=== PATIENT | male | born 1955 | race Caucasian/White ===

== ENCOUNTER 2020-02-23 07:52 | Day surgery (SDC) | payer OTHER, SELFPAY ==
[2020-02-21 09:03] VITALS: BMI 36.9
[2020-02-23 08:01] VITALS: BP 144/82; PULSE 71; RESP 18; TEMP 36.4; O2SAT 97
--- NOTE | 2020-02-23 08:05 | ANES.PREANE2 ---
Pre-Anesthetic Assessment Pre-Anesthetic Assessment: Height/Weight: Height 1.7 m Weight 107.048 kg Temp Pulse Resp BP Pulse Ox 97.6 F 71 18 144/82 97 02/23/20 08:01 02/23/20 08:01 02/23/20 08:01 02/23/20 08:01 02/23/20 08:01 Preop Diagnosis: History of colon polyp Proposed Procedure: Operation Date: 02/23/20 09:35 Proposed Procedures p Colonoscopy 06920 Z86.010(Not Applicable) - Merlin Yost MD Was Beta Maggie taken within 24 hours: N/A Last intake: Intake Last Liquid Date 02/22/20 Last Liquid Time 20:00 Social: Social History: Alcohol and No tobacco Exam: Pre-Anes Outpt Exam: alert, oriented x 3, clear to auscultation bilaterally and regular rate & rhythm Airway: Submandibular: WNL Cervical ROM: WNL MP: 2 Dentition: False (upper plate) History/ROS: No significant history except as noted and No significant complaints Pulmonary: Pulmonary: None reported CV/HEM: CV/HEM: None reported : : None reported Hepatic: Hepatic: None reported GI: GI: None reported Metabolic: Metabolic: None reported Musc/skel: Musc/skel: None reported Neuropsych: Neuropsych: None reported Anesthetic Plan: ASA status: 2 Anesthesia: Anesthesia Evaluation and MAC Risk of > 500 ml blood loss (7ml/kg in children): No PFSH Anesthesia PFSH: Surgical History History of carpal tunnel release History of colonoscopy with polypectomy (~2013) History of decompression of both ulnar nerves Family History Denies family history of Anesthesia complication Bleeding disorder Social History Smoking and tobacco status: never smoked Second hand smoke exposure: No Alcohol intake: never Adopted: No Caregiver/support person: Yes Lives independently: Yes Household members: spouse Housing: House Marital status: service: Yes Pets and animals: No History of recent travel: Yes Leisure activites: sports Current gender identity: Male Shakila/Scientology: Congregation Data Anesthesia Cardiac Studies: No Data to Display
[2020-02-23] MEDS: sodium chloride 0.9% 1,000 ML 30 ML IV (08:13)
--- NOTE | 2020-02-23 08:35 | W.PM.OPSUD ---
Surgery/Procedure H&P Update DATE OF PROCEDURE: February 23, 2020 DATE H&P PERFORMED: 02/14/20 H&P UPDATE INFORMATION: I have reviewed H&P completed within last 30 days, I have examined patient prior to procedure and No changes to prior documentation PREOP DIAGNOSIS: History of colon polyp PRIMARY INDICATION FOR PROCEDURE: The same PLANNED PROCEDURE: Operation Date: 02/23/20 09:35 Proposed Procedures p Colonoscopy [id number] Z86.010(Not Applicable) - Merlin Yost MD
[2020-02-23 08:53] VITALS: BP 110/69; PULSE 86; RESP 16; TEMP 36.4; O2SAT 98
[2020-02-23 09:06] VITALS: BP 113/78; PULSE 76; RESP 18; O2SAT 98
== END 2020-02-23 09:16 | disposition home or self-care (01) ==
PROVIDERS: PCP Emergency Medicine Emergency Medical Services; Visit Provider Surgery
PROC: 0DJD8ZZ Inspection of Lower Intestinal Tract, Via Natural or Artificial Opening Endoscopic (ICD-10-PCS; CPT 45378; principal; 2020-02-23 09:30)
DX: K57.30 Diverticulosis of large intestine without perforation or abscess without bleeding (principal); Z86.010 Personal history of colon polyps
CPT/HCPCS: 12345; 45378; J2704; J7030

== ENCOUNTER 2021-05-09 06:38 | Emergency (ER) | payer OTHER, SELFPAY ==
--- NOTE | 2021-05-09 06:44 | XR_ITS ---
WS: [id number] Left hip, AP and frog leg views, 05/09/2021 Clinical Data: pain Comparison: Left hip, 03/22/2019. Findings: No fractures or dislocations are seen. The hip joint is intact. The soft tissues are not remarkable. The adjacent pelvis is normal. There is a small cyst of the lateral acetabular lip. XR/XR hip LT 2-3V wo/w pel* [id number] Impression: Minimal cystic change of lateral left acetabular lip. Tonnis classification: grade 1: sclerosis of femoral head and acetabulum or sli ght joint space narrowing or slight lipping at joint margins
[2021-05-09 07:35] VITALS: BP 161/95; PULSE 55; RESP 16; TEMP 36.8; O2SAT 99; BMI 32.8
[2021-05-09 08:06] VITALS: BP 165/92; PULSE 62; RESP 16; O2SAT 98
[2021-05-09] MEDS: morphine 4 mg/mL SDV 1 mL IM (08:11)
[2021-05-09] MEDS: ketorolac 60 mg/2 mL INJ IM (08:12)
--- NOTE | 2021-05-09 08:14 | ED_ITS ---
HPI - Extremity Problem General: Chief complaint: Extremity Injury, Lower Stated complaint: L hip pain Time Seen by Provider: 05/09/21 06:38 History of Present Illness: HPI Narrative: 65-year-old male presents to the emergency room complaining of left hip pain that began this morning. Her last several days he been doing a lot of strenuous activities no known injuries no falls. MD Complaint: joint pain Onset (ago): hour(s) Pain Consistency: constant Location: left Quality: sharp Radiation: none Relieving factors: rest Exacerbating factors: nothing Associated symptoms: Reports arthralgias; Deny chest pain, fever(s), myalgias, rash or short of breath Review of Systems Const: Denies: fever(s) ENMT: Denies: throat pain, ear or mastoid pain, nasal discharge or nasal congestion Card: Denies: chest pain Resp: Denies: dyspnea, productive cough or non-productive cough GI: Denies: abdominal pain, nausea, vomiting, hematemesis, coffee ground emesis, diarrhea, constipation, bloating, hematochezia or melena : Denies: flank pain, dysuria, urinary frequency or urinary urgency Skin/Breast: Denies: rash PFSH ED PFSH: Surgical History History of carpal tunnel release History of colonoscopy with polypectomy (~2013) History of decompression of both ulnar nerves Family History Denies family history of Anesthesia complication Bleeding disorder Social History Smoking and tobacco status: never smoked Second hand smoke exposure: No Alcohol intake: never Adopted: No Caregiver/support person: Yes Lives independently: Yes Household members: spouse Housing: House Marital status: service: Yes branch: [employer] Pets and animals: No History of recent travel: Yes Leisure activites: sports Current gender identity: Male Shakila/Islam: Yarsani Physical Exam Const: COMMON NORMALS: no acute distress GENERAL APPEARANCE: cooperative and comfortable ORIENTATION/CONSCIOUSNESS: Yes awake, Yes oriented to person, Yes oriented to place and Yes oriented to time HENMT: COMMON NORMALS: normocephalic, atraumatic and hearing grossly normal bilaterally HEAD & SCALP: normocephalic and atraumatic Neck/C-Spine: COMMON NORMALS: no JVD Lymph: LYMPHATIC: no lymphadenopathy noted and no lymphedema noted Resp: COMMON NORMALS: normal respiratory effort, No retractions, No use of accessory muscles and clear to auscultation bilaterally AUSCULTATION: clear to auscultation bilaterally Cardio: COMMON NORMALS: no JVD, regular rate, regular rhythm and No murmurs present (Cardio) RATE: regular rate RHYTHM: regular rhythm GI: COMMON NORMALS: Soft to palpation and No hepatosplenomegaly present AUSCULTATION: Yes normoactive bowel sounds PALPATION: Yes Soft to palpation, No Tenderness to palpation present (GI), No Guarding due to palpation present (GI) and Yes No hepatosplenomegaly present Extremity: COMMON NORMALS: normal to inspection, capillary refill normal, no clubbing, cyanosis or edema, no calf tenderness and no pedal edema Neuro: SENSORIUM/ORIENTATION: Yes oriented to person, Yes oriented to place and Yes oriented to time Skin: COMMON NORMALS: no rashes or lesions noted GENERAL SKIN EXAM: no rashes or lesions noted Course Vital Signs: Vital signs: Vital Signs Temperature 98.3 F 05/09/21 07:35 Pulse Rate 63 05/09/21 09:20 Respiratory Rate 16 05/09/21 09:20 Blood Pressure 134/91 05/09/21 09:20 Pulse Oximetry 96 05/09/21 09:20 MDM - Extremity (Nontraumatic) MDM Narrative: Medical decision making narrative: Imaging is unremarkable. Certainly Medrol Dosepak anti-inflammatories can use ice or heat as needed for comfort follow-up with primary care if not improving Discharge Plan Discharge Patient Disposition: Home Clinical Impression: Acute pain of left hip Condition: Stable Prescriptions: New diclofenac sodium 75 mg tablet,delayed release (DR/EC) 75 mg PO Q12H PRN (Reason: pain) Qty: 20 RF: 0 Medrol (Misael) 4 mg tablets,dose pack See Rx Instructions .ROUTE .COMPLEX Qty: 21 RF: 0 Discontinued ibuprofen 200 mg capsule 800 mg PO TID PRN (Reason: Pain) RF: 0 Discharge Orders: Discharge ED (Routine); Ordered 05/09/21 Ordered By: Jose Mcclellan Referrals: Vick Sauer DO [Primary Care Provider] - Discharge Diet: Usual diet Discharge Activity: Increase activity as tolerated Patient Instructions: Opioid Safety Activity Restrictions/Additional Instructions: Follow-up with your primary care doctor if persists. 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
[2021-05-09 09:20] VITALS: BP 134/91; PULSE 63; RESP 16; O2SAT 96
== END 2021-05-09 09:22 | disposition home or self-care (01) ==
PROVIDERS: Emergency Provider Family Medicine; PCP Emergency Medicine Emergency Medical Services
DX: M25.552 Pain in left hip (principal)
CPT/HCPCS: 73502; 96372; 99283; J1885; J2270; J2930

== ENCOUNTER 2022-02-21 07:07 | Emergency (ER) | payer OTHER, MEDICARE, SELFPAY ==
[2022-02-21 07:19] VITALS: BP 163/87; PULSE 68; RESP 16; TEMP 36.6; O2SAT 95; BMI 36.8
[2022-02-21 07:28] VITALS: BP 163/87; PULSE 77; O2SAT 96
--- NOTE | 2022-02-21 07:28 | ED_ITS ---
HPI - Extremity Problem General: Chief complaint: Extremity Problem,Nontraumatic Stated complaint: [facility], and blood work Time Seen by Provider: 02/21/22 07:09 History of Present Illness: 66-year-old male patient presents to the emergency department complaining of right sided sciatica pain. Patient denies any injury or trauma. Patient denies any loss of bowel or bladder. Patient denies any fever. Patient denies any use of IV drug use. Patient states he has chronic intermittent sciatica pain. Patient states that the pain starts at his right buttocks and radiates down the back of his leg. Patient states he went to see his primary care physician and they were sent him over here for evaluation of kidney function as patient states he has been taking a lot of Tylenol and ibuprofen. However patient denies any CVA tenderness or flank pain. Patient states this is a common occurrence for him patient denies any other complaints at this time Associated symptoms: Deny chest pain, fever(s) or rash Review of Systems Const: Denies: fever(s), chills, body aches, change in appetite, change in weight, fatigue, malaise or diaphoresis Eyes: Denies: change in vision, blurry vision, blind spots, photophobia, eye discomfort, eye discharge, eye redness, floaters or seeing flashes ENMT: Denies: throat pain, uvular edema, enlarged tonsils, odynophagia, hoarseness, mouth pain, swelling of lips/tongue, oral sores, bleeding gums, dental pain, dry mouth, ear or mastoid pain, ear discharge, change in hearing, tinnitus, disequilibrium, nasal discharge, nasal congestion, post nasal drip or sinus pain Card: Denies: chest pain, palpitations, irregular heart rhythm, edema, swelling of feet/ankles, lightheadedness, syncope, pre-syncope, dyspnea on exertion, orthopnea, leg pain with exertion or acrocyanosis Resp: Denies: dyspnea, productive cough, non-productive cough, wheezing, stridor, pain on inspiration, change in phlegm color, hemoptysis or chest congestion GI: Denies: abdominal pain, nausea, vomiting, hematemesis, dysphagia, diarrhea, constipation, GI cramping, change in bowel habits or rectal pain : Denies: flank pain, dysuria, urinary frequency, urinary urgency, urinary hesitancy or hematuria Musc: Denies: neck pain, back pain, extremity swelling, joint pain, joint swelling, joint redness, joint warmth or deformity Skin/Breast: Denies: rash, pruritus, erythema, sores, new lesions, changes in skin color or dry skin Neuro: Denies: headache(s), numbness in extremities, weakness in extremities, sensory changes, lack of coordination, difficulty walking, frequent falls, dizziness, vertigo, confusion, behavioral changes, Slurred speech present, difficulty communicating thoughts or seizure-like activity Psych: Denies: anxiety, depression, suicidal ideation or homicidal ideation Endo: Denies: polyuria, polydipsia, tired all the time, cold intolerance, excessive sweating, flushing, hot flashes or heat intolerance Fritz/Lymph: Denies: easy bruising, easy bleeding, petechiae, purpura, enlarged lymph nodes or tender lymph nodes All/Imm: Denies: urticaria, throat swelling, tongue swelling, facial swelling, acute wheezing or itchy eyes PFSH ED PFSH: Surgical History History of carpal tunnel release History of colonoscopy with polypectomy (~2013) History of decompression of both ulnar nerves Family History Denies family history of Anesthesia complication Bleeding disorder Social History Smoking and tobacco status: never smoked Second hand smoke exposure: No Alcohol intake: never Adopted: No Caregiver/support person: Yes Lives independently: Yes Household members: spouse Housing: House Marital status: service: Yes branch: [employer] Pets and animals: No History of recent travel: Yes Leisure activites: sports Current gender identity: Male Shakila/Islam: Latter-Day Physical Exam Const: COMMON NORMALS: no acute distress, patient oriented x3, healthy appearing, alert and well nourished GENERAL APPEARANCE: cooperative, comfortable, well kempt and well developed; not ill appearing ORIENTATION/CONSCIOUSNESS: Yes awake, Yes oriented to person, Yes oriented to place and Yes oriented to time HENMT: COMMON NORMALS: normocephalic, atraumatic, TM's normal bilaterally, Normal external nose present and moist oral mucous membranes HEAD & SCALP: normocephalic and atraumatic FACE & SINUS: normal facial exam and face symmetric NOSE: Normal external nose present TYMPANIC MEMBRANE: TM's normal bilaterally THROAT: no uvular edema Neck/C-Spine: COMMON NORMALS: full ROM, no lymphadenopathy, supple, no meningeal signs, no JVD and Thyroid normal GENERAL: Yes normal visual inspection and Yes trachea midline THYROID: Thyroid normal CERVICAL SPINE: Yes cervical ROM normal Lymph: LYMPHATIC: no lymphadenopathy noted and no lymphedema noted Chest: COMMONS NORMALS: normal inspection of the chest Resp: COMMON NORMALS: normal respiratory effort, No retractions, No use of accessory muscles and clear to auscultation bilaterally EFFORT & INSPECTION: Yes able to speak in complete sentences and Yes symmetric chest movement AUSCULTATION: clear to auscultation bilaterally Cardio: COMMON NORMALS: no JVD, regular rate and regular rhythm RATE: regular rate RHYTHM: regular rhythm : COMMON NORMALS: Yes no CVA tenderness BLADDER/KIDNEY EXAM: Yes no CVA tenderness Back/Pelvis: COMMON NORMALS: no CVA tenderness, thoracic and lumbar spine normal to inspection, no thoracic nor lumbar tenderness, thoraco-lumbar ROM normal and straight leg raise negative bilaterally THORACIC SPINE/UPPER BACK: Yes normal to inspection LUMBAR SPINE/LOWER BACK: Yes normal to inspection Extremity: COMMON NORMALS: normal to inspection, full ROM and capillary refill normal GENERAL: Yes normal exam except as noted Neuro: COMMON NORMALS: patient oriented x3, CN's II-XII intact bilaterally, moves all extremities, no focal motor deficits, no sensory deficits noted, deep tendon reflexes 2+ bilaterally and gait normal SENSORIUM/ORIENTATION: Yes alert, Yes oriented to person, Yes oriented to place and Yes oriented to time MENINGEAL SIGNS: Yes no meningeal signs CRANIAL NERVES: Yes CN normal except as noted SPEECH: speech normal GAIT: Yes Normal gait present SENSORY EXAM: Yes extremities MOTOR EXAM: 5/5 motor strength present throughout Psych: COMMON NORMALS: mental status grossly normal, Normal thought process present, cooperative, normal affect, speech normal, activity/motor behavior normal, denies hallucinations, denies homicidal ideation and denies suicidal ideation APPEARANCE: Yes grossly normal and Yes well kempt ATTITUDE: Yes calm ACTIVITY/MOTOR BEHAVIOR: Yes appropriate eye contact SPEECH: Yes normal speech THOUGHT PROCESS: Normal thought process present THOUGHT CONTENT: Yes Normal thought content present ATTENTION/CONCENTRATION: Yes attention grossly intact MEMORY/COGNITION: Yes memory grossly intact INSIGHT: Good insight present (Psych) JUDGEMENT: Good judgement present (Psych) Skin: COMMON NORMALS: no rashes or lesions noted, no wounds, turgor normal, no jaundice, no petechiae and no mottling GENERAL SKIN EXAM: no rashes or lesions noted and turgor normal Course ED course: Patient is well-appearing nontoxic and in no acute distress. 66-year-old male patient presents to the emergency department complaining of right sided sciatica pain. Patient denies any injury or trauma. Patient denies any loss of bowel or bladder. Patient denies any fever. Patient denies any use of IV drug use. Patient states he has chronic intermittent sciatica pain. Patient states that the pain starts at his right buttocks and radiates down the back of his leg. Patient states he went to see his primary care physician and they were sent him over here for evaluation of kidney function as patient states he has been taking a lot of Tylenol and ibuprofen. However patient denies any CVA tenderness or flank pain. Patient states this is a common occurrence for him patient denies any other complaints at this time I will check CBC CMP and urinalysis to evaluate kidney function. I will give patient Valium as a muscle relaxer and a small dose of Toradol. Patient had improvement with pain. Labs are unremarkable and patient is requesting to go homw. Will start on short bourse of steroids. Vital Signs: Vital signs: Vital Signs Temperature 97.8 F 02/21/22 07:19 Pulse Rate 77 02/21/22 07:28 Respiratory Rate 16 02/21/22 07:19 Blood Pressure 163/87 02/21/22 07:28 Pulse Oximetry 96 02/21/22 07:28 MDM - Extremity (Nontraumatic) Medical Decision Making Patient is well-appearing nontoxic and in no acute distress. 66-year-old male tracey rios presents to the emergency department complaining of right sided sciatica pain. Patient denies any injury or trauma. Patient denies any loss of bowel or bladder. Patient denies any fever. Patient denies any use of IV drug use. Patient states he has chronic intermittent sciatica pain. Patient states that the pain starts at his right buttocks and radiates down the back of his leg. Patient states he went to see his primary care physician and they were sent him over here for evaluation of kidney function as patient states he has been taking a lot of Tylenol and ibuprofen. However patient denies any CVA tenderness or flank pain. Patient states this is a common occurrence for him patient denies any other complaints at this time I will check CBC CMP and urinalysis to evaluate kidney function. I will give patient Valium as a muscle relaxer and a small dose of Toradol. Patient had improvement with pain. Labs are unremarkable and patient is requesting to go homw. Will start on short bourse of steroids. Lab Data : 02/21/22 07:40 02/21/22 07:40 Laboratory Results WBC 6.0 10^3/uL (4.0-10.0) 02/21/22 07:40 RBC 4.98 10^6/uL (4.1-5.3) 02/21/22 07:40 Hgb 15.7 g/dL (11.7-16.6) 02/21/22 07:40 Hct 46.7 % (42.0-52.0) 02/21/22 07:40 MCV 93.8 fl (80-94) 02/21/22 07:40 MCH 31.5 pg (28.0-34.0) 02/21/22 07:40 MCHC 33.6 g/dL (30.0-36.0) 02/21/22 07:40 RDW 12.6 % (12.1-15.1) 02/21/22 07:40 Plt Count 245 10^3/cmm (130-400) 02/21/22 07:40 MPV 11.0 fL (7.4-10.4) H 02/21/22 07:40 Neut % (Auto) 59.3 % 02/21/22 07:40 Lymph % (Auto) 23.3 % 02/21/22 07:40 Phelps % (Auto) 10.2 % 02/21/22 07:40 Eos % (Auto) 5.0 % 02/21/22 07:40 Baso % (Auto) 1.7 % 02/21/22 07:40 Neut # (Auto) 3.53 10^3/uL (1.8-7.7) 02/21/22 07:40 Lymph # (Auto) 1.4 10^3/uL (0.8-4.8) 02/21/22 07:40 Phelps # (Auto) 0.6 10^3/uL (0.2-0.9) 02/21/22 07:40 Eos # (Auto) 0.3 10^3/uL (0.0-0.8) 02/21/22 07:40 Baso # (Auto) 0.1 10^3/uL (0.0-0.1) 02/21/22 07:40 Nucleated RBC % (auto) 0 % 02/21/22 07:40 Nucleated RBCs # 0.0 /100WBC 02/21/22 07:40 Sodium 136 mmol/L (136-145) 02/21/22 07:40 Potassium 4.5 mmol/L (3.5-5.1) 02/21/22 07:40 Chloride 102 mmol/L (98-107) 02/21/22 07:40 Carbon Dioxide 25 mmol/L (22-29) 02/21/22 07:40 Anion Gap 13.5 (5-19) 02/21/22 07:40 BUN 21 mg/dL (8-23) 02/21/22 07:40 Creatinine 0.6 mg/dL (0.7-1.2) L 02/21/22 07:40 GFR Calculation 135.2 mL/min (90-130) H 02/21/22 07:40 Glucose 100 mg/dL (65-115) 02/21/22 07:40 Calculated Osmolality 285 mOsm/kg (285-295) 02/21/22 07:40 Calcium 8.2 mg/dL (8.5-10.5) L 02/21/22 07:40 Total Bilirubin 0.3 mg/dL (0.15-1.2) 02/21/22 07:40 AST 19 U/L (0-40) 02/21/22 07:40 ALT 13 U/L (0-41) 02/21/22 07:40 Alkaline Phosphatase 67 IU/L (40-130) 02/21/22 07:40 Total Protein 6.7 g/dL (6.6-8.7) 02/21/22 07:40 Albumin 4.3 g/dL (3.5-5.2) 02/21/22 07:40 Globulin 2.4 g/dL (1.3-4.6) 02/21/22 07:40 Urine Color Yellow (Yellow) 02/21/22 07:54 Urine Appearance Clear (CLEAR) 02/21/22 07:54 Urine pH 6 (5-7) 02/21/22 07:54 Ur Specific [place] 1.020 (1.005-1.030) 02/21/22 07:54 Urine Protein Neg (Negative) 02/21/22 07:54 Urine Glucose (UA) Norm (Normal) 02/21/22 07:54 Urine Ketones Negative (Negative) 02/21/22 07:54 Urine Blood Neg (Negative) 02/21/22 07:54 Urine Nitrate Negative (Negative) 02/21/22 07:54 Urine Bilirubin Neg (Negative) 02/21/22 07:54 Urine Urobilinogen Norm mg/dL (Negative) 02/21/22 07:54 Ur Leukocyte Esterase Negative (Negative) 02/21/22 07:54 Discharge Plan Discharge Patient Disposition: Home Clinical Impression: Sciatic leg pain Condition: Stable Prescriptions: New prednisone 20 mg tablet 20 mg PO BID 5 Days Qty: 10 0RF Discharge Orders: Discharge ED (Routine); Ordered 02/21/22 Ordered By: Bibiana Barrera Referrals: Vick Sauer DO [Primary Care Provider] - Discharge Diet: Usual diet Discharge Activity: Increase activity as tolerated Activity Restrictions/Additional Instructions: Please perform stretches as demonstrated Please return with worsening pain, fever, loss of bowel or bladder or any other concerns Take medications as directed Follow up with PCP Coding Level of Care Code ED 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
[2022-02-21] MEDS: diazePAM 2 mg Tablet PO (07:34)
[2022-02-21] MEDS: ketorolac 30 mg/mL INJ IM (07:34)
[2022-02-21 08:00] LABS: Basophils # 0.1 10^3/uL (0.0-0.1); Basophils % 1.7 %; Eosinophils # 0.3 10^3/uL (0.0-0.8); Hematocrit 46.7 % (42.0-52.0); Hemoglobin 15.7 g/dL (11.7-16.6); Lymphocytes # 1.4 10^3/uL (0.8-4.8); Lymphocytes % 23.3 %; Mean Corpuscular HGB Conc 33.6 g/dL (30.0-36.0); Mean Corpuscular Hemoglobin 31.5 pg (28.0-34.0); Mean Corpuscular Volume 93.8 fl (80-94); Monocytes # 0.6 10^3/uL (0.2-0.9); Monocytes % 10.2 %; Neutrophils # 3.53 10^3/uL (1.8-7.7); Neutrophils % 59.3 %; Nucleated Red Blood Cells % 0 %; Platelet Count 245 10^3/cmm (130-400); Red Blood Count 4.98 10^6/uL (4.1-5.3); Red Cell Distribution Width 12.6 % (12.1-15.1)
[2022-02-21 08:10] LABS: Alanine Aminotransferase 13 U/L (0-41); Albumin Level 4.3 g/dL (3.5-5.2); Alkaline Phosphatase 67 IU/L (40-130); Blood Urea Nitrogen 21 mg/dL (8-23); Calcium 8.2 mg/dL (8.5-10.5); Carbon Dioxide 25 mmol/L (22-29); Chloride 102 mmol/L (98-107); Globulin 2.4 g/dL (1.3-4.6); Glomerular Filtration Rate 135.2 mL/min (90-130); Glucose 100 mg/dL (65-115); Osmolality Calculated 285 mOsm/kg (285-295); Sodium 136 mmol/L (136-145); Total Bilirubin 0.3 mg/dL (0.15-1.2); Total Protein 6.7 g/dL (6.6-8.7)
[2022-02-21 08:17] LABS: Anion Gap 13.5 (5-19); Aspartate Amino Transferase 19 U/L (0-40); Creatinine Clr Calc Pharmacy 107.1583; Potassium 4.5 mmol/L (3.5-5.1)
[2022-02-21 08:57] LABS: Add Urine Microscopic? NO; Charge for UA Resulting for Rev
[2022-02-21 09:09] LABS: Bilirubin Urine Neg (Negative); Blood Urine Neg (Negative); Glucose Urine UA Norm (Normal); Ketones Urine Negative (Negative); Leukocyte Esterase Urine Negative (Negative); Nitrate Urine Negative (Negative); Protein Urine Neg (Negative); Urine Appearance Clear (CLEAR); Urine Color Yellow (Yellow); Urobilinogen Urine Norm (Negative); pH Urine 6 (5-7)
== END 2022-02-21 09:38 | disposition home or self-care (01) ==
PROVIDERS: Emergency Provider Registered Nurse; PCP Emergency Medicine Emergency Medical Services
DX: M54.31 Sciatica, right side (principal)
CPT/HCPCS: 80053; 81003; 85025; 96372; 99283; J1885

== ENCOUNTER 2022-07-04 13:58 | Outpatient (CLI) | payer OTHER, SELFPAY ==
--- NOTE | 2022-07-04 14:10 | MR_ITS ---
WS: [id number] MRI LUMBAR SPINE NONCONTRAST HISTORY: CONTINUED PROBLEM W/R LOWER EXTREMITY DISCOMFORT TINGLING, foot drop on the RIGHT. COMPARISON: None available. TECHNIQUE: Sagittal and axial multisequence imaging is submitted. Multilevel moderate degenerative disc desiccation and narrowing throughout the cervical and thoracic spine. Small disc bulges and osteophytes. No high-grade stenosis or cord compression. L5 anterolisthesis by 9.4 mm with unroofing of the disc. Bilateral pars defects are present. L5-S1 di sc space severely narrowed with endplate osteophytes. The remaining disc spaces in the lumbar spine are mildly narrowed. No acute fractures. Conus terminates normally at L2. T12-L1: Small LEFT foraminal disc protrusion contacts the exiting LEFT T12 nerve root. L1-L2: Mild facet arthritis with no stenosis. L2-L3: Moderate diffuse annular disc bulge with ligamentum flavum and facet arthritis. Small vertebra l body osteophytes. There is mild central with bilateral subarticular recess and LEFT foraminal narro wing. L3-L4: Diffuse asymmetric disc bulging slightly to the LEFT. Moderate ligamentum flavum and facet art hritis. Small central disc protrusion with additional disc osteophyte complex in the LEFT foramen. Mi ld central, bilateral subarticular recess and foraminal stenosis. L4-L5: Diffuse annular disc bulge with marked ligamentum flavum and facet arthritis. Widening of the facet joints with fluid in the facet joints. Fluid in the LEFT facet joint measures 4.4 mm. Small fis sures within the disc extending into the RIGHT foramen. Mild central and bilateral subarticular reces s stenosis. Moderate to severe RIGHT and moderate LEFT foraminal stenosis. L5-S1: Marked unroofing of the disc due to anterolisthesis of L5. Disc contacts but does not displace the S1 nerve roots. Complete effacement of fat within the neural foramina. Severe bilateral foramina l stenosis with severe facet joint arthritis. Paravertebral soft tissues are negative. MR/MR lumbar spine wo con* [id number] IMPRESSION: 1. Grade 1 spondylolisthesis of L5 with spondylolysis. 2. Severe bilateral foraminal stenosis at L5-S1 with severe facet joint arthri tis. 3. Moderate to severe RIGHT and moderate LEFT foraminal stenosis at L4-5 with mild central and subarticular recess stenosis. 4. Severe facet joint arthritis at L4-5 with widening of the facet joints and fluid along the facet joints. 5. Mild central, bilateral subarticular recess and LEFT foraminal stenosis at L2-3. 6. Mild central, bilateral subarticular recess and foraminal stenosis at L3-4. 7. LEFT foraminal disc protrusion at T12-L1 with mild contact on the exiting L EFT T12 nerve root.
== END 2022-07-04 13:59 | disposition home or self-care (01) ==
LOC: RAD 13:59
PROVIDERS: PCP Emergency Medicine Emergency Medical Services; Visit Provider Emergency Medicine Emergency Medical Services
DX: M51.25 Other intervertebral disc displacement, thoracolumbar region (principal); M51.36 Other intervertebral disc degeneration, lumbar region; M47.817 Spondylosis without myelopathy or radiculopathy, lumbosacral region; M48.07 Spinal stenosis, lumbosacral region
CPT/HCPCS: 72148

== ENCOUNTER → 2022-07-25 08:10 | Outpatient (BNVA) | payer OTHER, SELFPAY | PROVIDERS: PCP Emergency Medicine Emergency Medical Services; Referring Provider Emergency Medicine Emergency Medical Services; Visit Provider Physician Assistant | DX: M43.17 Spondylolisthesis, lumbosacral region (principal); M51.37 Other intervertebral disc degeneration, lumbosacral region; M81.0 Age-related osteoporosis without current pathological fracture; M47.816 Spondylosis without myelopathy or radiculopathy, lumbar region | CPT/HCPCS: 72110; 99203; 99204 ==

== ENCOUNTER 2022-08-16 07:38 | Day surgery (SDC) | payer OTHER, SELFPAY ==
[2022-08-09 09:40] VITALS: BMI 37.5
--- NOTE | 2022-08-09 09:56 | P.ANESASSM_ITS ---
Pre-Anesthetic Assessment Height/Weight: Height 1.7 m Weight 108.862 kg Preop Diagnosis: History of colon polyp Operation Date: 08/16/22 09:20 Proposed Procedures p Lumbar Spine DecompressionL4/5 L5/S1 66914/48622 M43.17/M21.371/M51.37(Right) - Marlo Valadez DO Familial anesthetic complications: None Social No alcohol and No tobacco Exam alert, oriented x 3, clear to auscultation bilaterally and regular rate & rhythm Airway Mallampati: Class II Dentition: false Pulmonary None reported CV/HEM None reported None reported Hepatic None reported GI None reported Metabolic Morbid Obesity Neuropsych Neuropathy Medications/Allergies Home Medications Medication Instructions Recorded Confirmed Last Taken Type No Known Home Medications 07/25/22 07/25/22 Unknown History Allergies Allergy/AdvReac Type Severity Reaction Status Date / Time Penicillins AdvReac ADR-Cramping Verified 08/09/22 09:38 of the Muscles [facility] Anesthesia Surgical History History of carpal tunnel release History of colonoscopy with polypectomy (~2013) History of decompression of both ulnar nerves Family History Denies family history of Anesthesia complication Bleeding disorder Social History Smoking and tobacco status: never smoked Second hand smoke exposure: No Alcohol intake: never Adopted: No Caregiver/support person: Yes Lives independently: Yes Household members: spouse Housing: House Marital status: service: Yes branch: [employer] Pets and animals: No History of recent travel: Yes Leisure activites: sports Current gender identity: Male 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
[2022-08-16] VITALS (9 sets, daily range): BP systolic 124–145; BP diastolic 82–98; PULSE 57–68; RESP 14–21; TEMP 36.1; O2SAT 93–98
--- NOTE | 2022-08-16 | SCC_ITS ---
Procedure: 1. L4/5 laminectomy with partial facetectomy 2. L5/S1 laminectomy with partial facetectomy 17 seconds of fluoroscopic guidance, for a cumulative dose of 18.6 mGy, was provided to Dr. Valadez by the radiology department. C-arm images of the lumbar spine were saved for the patient's permanent record. [facility]
--- NOTE | 2022-08-16 | XR_ITS ---
WS: [id number] C-ARM RADIOGRAPHS LUMBAR SPINE; 3 IMAGES HISTORY: L4-5, L5-S1 decompression COMPARISON: 07/25/2022 Intraoperative imaging during spine decompression. Indicators object over the lower lumbar spine at L 4-5 and L5-S1. XR/XR lumbar spine 1V [id number] IMPRESSION: Intraoperative imaging during spinal decompression surgery.
[2022-08-16] MEDS: sodium chloride 0.9% 1,000 ML 30 ML IV (08:14)
--- NOTE | 2022-08-16 09:10 | W.PM.OPSUD ---
Surgery/Procedure H&P Update DATE OF PROCEDURE: August 16, 2022 DATE H&P PERFORMED: 02/14/20 H&P UPDATE INFORMATION: I have reviewed H&P completed within last 30 days, I have examined patient prior to procedure and No changes to prior documentation PREOP DIAGNOSIS: Right foot drop, lumbar radiculopathy PLANNED PROCEDURE: Operation Date: 08/16/22 09:20 Proposed Procedures p Lumbar Spine DecompressionL4/5 L5/S1 92547/07333 M43.17/M21.371/M51.37(Right) - Marlo Valadez DO
[2022-08-16] MEDS: clindamycin 900 MG/50 ML PREMIX 100 MG IV (09:41)
--- NOTE | 2022-08-16 11:21 | PM.OP ---
Operative Report Date of procedure: August 16, 2022 Pre-op diagnosis: Preop Diagnosis Right foot drop, lumbar radiculopathy Post-op diagnosis: same Procedure done: 1. L4/5 laminectomy with partial facetectomy 2. L5/S1 laminectomy with partial facetectomy Surgeon: Marlo Valadez Estimated blood loss (mL): 30 Procedure: 1. L4/5 laminectomy with partial facetectomy 2. L5/S1 laminectomy with partial facetectomy Patient is brought to the operative suite. After undergoing anesthesia they are placed in the prone position. All areas of impingement are well padded. Patient is then prepped and draped in the normal sterile fashion. A skin incision is made over the L5/S1 level. This is confirmed under c-arm guidance. A series of dilators are passed and the tubular retractor is docked on the L5 lamina. A bovie is used to clear the soft tissue off the lamina and the L 5/S1 facet joint. A high speed fabrizio is then used to perform the laminectomy and take down the medial aspect of the L 5/S1 facet joint. A kerrison rongeure was then used to take down the remaining lamina and smooth the edge of the laminectomy up to the point where the ligamentum flavum attaches. Attention was then brought to the medial aspect of the facet joint. The remaining medial aspect of the superior and inferior aspect of the facet joint were taken down with the kerrison from the pedicle of L5 to S1. The facet joint had significant hypertrophy. Attention was then brought to the Ligamentum Flavum. The ligament was taken down from the lamina of L5 to S1 and out medially to the remaining facet joint. The ligament was thick. The dura was then exposed. The dura was in good repair. The L5 nerve was then traced with a curette out the L5/S1 foramen and found to be adequately decompressed. The S1 nerve was traced with a curette around the S1 pedicle. The lateral recess was opened with a kerrison helping to further decompress the S1 nerve. A skin incision is made over the L4/5 level. This is confirmed under c-arm guidance. A series of dilators are passed and the tubular retractor is docked on the L4 lamina. A bovie is used to clear the soft tissue off the lamina and the L 4/5 facet joint. A high speed fabrizio is then used to perform the laminectomy and take down the medial aspect of the L 4/5 facet joint. A kerrison rongeure was then used to take down the remaining lamina and smooth the edge of the laminectomy up to the point where the ligamentum flavum attaches. Attention was then brought to the medial aspect of the facet joint. The remaining medial aspect of the superior and inferior aspect of the facet joint were taken down with the kerrison from the pedicle of L4 to L 5. The facet joint had significant hypertrophy. Attention was then brought to the Ligamentum Flavum. The ligament was taken down from the lamina of L4 to L5 and out medially to the remaining facet joint. The ligament was thick. The dura was then exposed. The dura was in good repair. The L4 nerve was then traced with a curette out the L4/5 foramen and found to be adequately decompressed. The L5 nerve was traced with a curette around the L5 pedicle. The lateral recess was opened with a kerrison helping to further decompress the L5 nerve. Wound is then irrigated copiously with saline and surgiflo is used to stop any bleeding. The tubular retractor is removed and the wound is closed with vicryl and monocryl suture. Glue is then used to protect the wound. A sterile dressing is then placed. Patient was then placed in the supine position and transferred to the PACU in stable condition.
[2022-08-16] MEDS: fentaNYL 50 mcg/mL INJ 2mL IVP (11:34)
[2022-08-16] MEDS: HYDROcodone-acetaminophen 5-325 mg Tablet 2 TAB PO (12:30)
--- NOTE | 2022-08-16 15:01 | P.ANESUD_ITS ---
Pre-Anesthetic Update Pre-Anesthetic Assessment: Date of Surgery/Procedure: 08/16/22 Preop Kimberly gnosis: Right foot drop, lumbar radiculopathy Proposed Procedure: Operation Date: 08/16/22 09:20 Proposed Procedures p Lumbar Spine DecompressionL4/5 L5/S1 44034/23677 M43.17/M21.371/M51.37(Right) - Marlo H Allyson, DO Any changes to Pre-Anesthetic Assessment?: No Last Intake: Intake Last Liquid Date 08/15/22 Last Liquid Time 21:00 Last Solid Date 08/15/22 Last Solid Time 21:00 Vitals: Temperature 97.0 F L 08/16/22 11:14 Temperature Source Temporal Artery S can 08/16/22 11:14 Pulse Rate 57 L 08/16/22 12:22 Respiratory Rate 18 08/16/22 12:22 Respiratory Effort 08/16/22 11:34 Respiratory Depth Normal 08/16/22 11:34 Respiratory Patter n 08/16/22 11:34 Blood Pressure 127/84 08/16/22 12:22 Blood Pressure Ebony n 98 08/16/22 12:22 Pulse Oximetry 95 08/16/22 12:22 Oxygen Delivery Me thod 08/16/22 12:22 Oxygen Flow Rate 10 08/16/22 11:20 Exam: Pre-Anes Outpt Exam: alert, oriented x 3, clear to auscultation bilaterally and regular rate & rhythm Cardiac Studies: No Data to Display
--- NOTE | 2022-08-16 15:02 | ANE.PACU2 ---
Inpatient post-anesthesia follow up: Airway intact: Yes Vital signs: Temperature 97.0 F Pulse Rate 57 Respiratory Rate 18 Blood Pressure 127/84 Pulse Oximetry 95 Oxygen Delivery Me thod Room Air Oxygen Flow Rate 10 Fraction of Inspir ed Oxygen Hydration adequate: Yes Nausea and vomiting: No Pain level: 3 Mental status: Baseline
== END 2022-08-16 12:49 | disposition home or self-care (01) ==
PROVIDERS: PCP Emergency Medicine Emergency Medical Services; Visit Provider Orthopaedic Surgery
PROC: (CPT 63005; principal; 2022-08-16 09:10)
DX: M54.16 Radiculopathy, lumbar region (principal); M21.371 Foot drop, right foot; E66.01 Morbid (severe) obesity due to excess calories; Z68.37 Body mass index [BMI] 37.0-37.9, adult
CPT/HCPCS: 63047; 63048; 72020; 76000; J0131; J0330; J1100; J2370; J2405; J2704; J2710; J3010; J3490; J7030

== ENCOUNTER 2022-08-18 12:50 | Emergency (ER) | payer OTHER, SELFPAY ==
[2022-08-18 13:12] VITALS: BP 173/98; PULSE 76; RESP 16; TEMP 37; O2SAT 99
--- NOTE | 2022-08-18 13:20 | W.ED.NEUROSD ---
HPI - Neuro Symptoms/Deficit General: Chief Complaint: Neuro Symptoms/Deficit Stated Complaint: Post op pain and numb feet Time Seen by Provider: 08/18/22 13:19 Source: patient Mode of arrival: ambulatory History of Present Illness: 67-year-old male presents emergency room complaining of pain in his feet. Patient is complaining severe pain bilaterally in his legs. No trauma he recently had low back surgery was having similar pain prior to surgery but is more intense now. Denies any fever sweats chills no loss of bowel continence no urinary retention Onset (ago): hour(s) Severity: mild Quality: weak, numb and tingling Relieving factors: none Exacerbating factors: none Associated symptoms: Deny chest pain, cough, diaphoresis, fevers/chills, headache(s), anorexia, malaise, nausea, seizures, short of breath, syncope, tingling, vertigo, vomiting or weakness Treatments Prior to Arrival: none Review of Systems Const: Denies: fever(s), chills, fatigue, malaise or diaphoresis ENMT: Denies: throat pain, ear or mastoid pain, nasal discharge or nasal congestion Card: Denies: chest pain or syncope Resp: Denies: dyspnea, productive cough or non-productive cough GI: Denies: abdominal pain, nausea or vomiting : Denies: flank pain, dysuria, urinary frequency or urinary urgency Musc: Denies: neck pain or back pain Skin/Breast: Denies: rash or pruritus Neuro: Denies: headache(s) or vertigo PFSH ED PFSH: Surgical History History of carpal tunnel release History of colonoscopy with polypectomy (~2013) History of decompression of both ulnar nerves Family History Denies family history of Anesthesia complication Bleeding disorder Social History Smoking and tobacco status: never smoked Second hand smoke exposure: No Alcohol intake: never Adopted: No Caregiver/support person: Yes Lives independently: Yes Household members: spouse Housing: House Marital status: service: Yes branch: [employer] Pets and animals: No History of recent travel: Yes Leisure activites: sports Current gender identity: Male Shakila/Orthodoxy: Mormon Physical Exam Const: GENERAL APPEARANCE: cooperative and comfortable ORIENTATION/CONSCIOUSNESS: Yes awake, Yes oriented to person, Yes oriented to place and Yes oriented to time HENMT: COMMON NORMALS: normocephalic, atraumatic, hearing grossly normal bilaterally, external ears normal, EAC's normal, TM's normal bilaterally, Normal nasal mucous membranes and turbinates present, moist oral mucous membranes and oropharynx normal HEAD & SCALP: normocephalic and atraumatic NOSE: Normal nasal mucous membranes and turbinates present EXTERNAL EAR: Yes external ears normal EXTERNAL AUDITORY CANAL: EAC's normal TYMPANIC MEMBRANE: TM's normal bilaterally Resp: COMMON NORMALS: normal respiratory effort, No retractions, No use of accessory muscles and clear to auscultation bilaterally AUSCULTATION: clear to auscultation bilaterally Cardio: COMMON NORMALS: regular rate, regular rhythm and No murmurs present (Cardio) RATE: regular rate RHYTHM: regular rhythm GI: COMMON NORMALS: Soft to palpation and No hepatosplenomegaly present AUSCULTATION: Yes normoactive bowel sounds PALPATION: Yes Soft to palpation, No Tenderness to palpation present (GI), No Guarding due to palpation present (GI) and Yes No hepatosplenomegaly present : COMMON NORMALS: Yes no CVA tenderness BLADDER/KIDNEY EXAM: Yes no CVA tenderness Back/Pelvis: COMMON NORMALS: no CVA tenderness Extremity: COMMON NORMALS: normal to inspection, capillary refill normal, no clubbing, cyanosis or edema, no calf tenderness and no pedal edema Neuro: SENSORIUM/ORIENTATION: Yes oriented to person, Yes oriented to place and Yes oriented to time OTHER: Sensation lower extremities normal dorsum plantar flexion 5/5 straight leg raising is moderately positive Skin: COMMON NORMALS: no rashes or lesions noted GENERAL SKIN EXAM: no rashes or lesions noted Course Vital Signs: Vital signs: Vital Signs Temperature 98.6 F 08/18/22 13:12 Pulse Rate 76 08/18/22 13:12 Respiratory Rate 18 08/18/22 14:32 Blood Pressure 173/98 08/18/22 13:12 Pulse Oximetry 99 08/18/22 13:12 Oxygen Delivery Me thod 08/18/22 13:12 MDM - Neuro Symptoms/Deficit Medical Decision Making Was lumbar laminectomy syndrome. Patient steroids tizanidine only Lyrica follow-up with orthopedic surgery can use diclofenac or hydrocodone as needed recheck if not improving Medical Records I reviewed the patient's medical records. Lab Data I reviewed the patient's lab results. 08/18/22 13:53 08/18/22 13:53 Radiology Impressions Lumbar Spine CT 08/18/22 13:21 IMPRESSION: 1. Grade 1 anterior spondylolytic spondylolisthesis of L5 on S1. 2. Severe L5-S1 degenerative disc disease and spondylosis with Modic type III sclerotic endplate degenerative changes. 3. Possible right L4-L5 laminectomy. 4. Mild L4-L5 posterior disc bulge with right lateral recess stenosis. 5. Mild multilevel lumbar spondylosis. Laboratory Results WBC 13.7 10^3/uL (4.0-10.0) H 08/18/22 13:53 RBC 4.63 10^6/uL (4.1-5.3) 08/18/22 13:53 Hgb 14.6 g/dL (11.7-16.6) 08/18/22 13:53 Hct 44.6 % (42.0-52.0) 08/18/22 13:53 MCV 96.3 fl (80-94) H 08/18/22 13:53 MCH 31.5 pg (28.0-34.0) 08/18/22 13:53 MCHC 32.7 g/dL (30.0-36.0) 08/18/22 13:53 RDW 12.8 % (12.1-15.1) 08/18/22 13:53 Plt Count 242 10^3/cmm (130-400) 08/18/22 13:53 MPV 10.3 fL (7.4-10.4) 08/18/22 13:53 Neut % (Auto) 78.9 % 08/18/22 13:53 Lymph % (Auto) 8.4 % 08/18/22 13:53 Daniels % (Auto) 10.9 % 08/18/22 13:53 Eos % (Auto) 0.4 % 08/18/22 13:53 Baso % (Auto) 0.5 % 08/18/22 13:53 Neut # (Auto) 10.81 10^3/uL (1.8-7.7) H 08/18/22 13:53 Lymph # (Auto) 1.2 10^3/uL (0.8-4.8) 08/18/22 13:53 Daniels # (Auto) 1.5 10^3/uL (0.2-0.9) H 08/18/22 13:53 Eos # (Auto) 0.1 10^3/uL (0.0-0.8) 08/18/22 13:53 Baso # (Auto) 0.1 10^3/uL (0.0-0.1) 08/18/22 13:53 Nucleated RBC % (auto) 0 % 08/18/22 13:53 Nucleated RBCs # 0.0 /100WBC 08/18/22 13:53 Sodium 125 mmol/L (136-145) L 08/18/22 13:53 Potassium 3.3 mmol/L (3.5-5.1) L 08/18/22 13:53 Chloride 91 mmol/L (98-107) L 08/18/22 13:53 Carbon Dioxide 27 mmol/L (22-29) 08/18/22 13:53 Anion Gap 10.3 (5-19) 08/18/22 13:53 BUN 15 mg/dL (8-23) 08/18/22 13:53 Creatinine 0.6 mg/dL (0.7-1.2) L 08/18/22 13:53 GFR Calculation 134.8 mL/min (90-130) H 08/18/22 13:53 Glucose 108 mg/dL (65-115) 08/18/22 13:53 Calculated Osmolality 261 mOsm/kg (285-295) L 08/18/22 13:53 Calcium 8.6 mg/dL (8.5-10.5) 08/18/22 13:53 Total Bilirubin 0.5 mg/dL (0.15-1.2) 08/18/22 13:53 AST 20 U/L (0-40) 08/18/22 13:53 ALT 16 U/L (0-41) 08/18/22 13:53 Alkaline Phosphatase 70 U/L (40-130) 08/18/22 13:53 Total Protein 6.9 g/dL (6.6-8.7) 08/18/22 13:53 Albumin 3.6 g/dL (3.5-5.2) 08/18/22 13:53 Globulin 3.3 g/dL (1.3-4.6) 08/18/22 13:53 Urine Color Straw (Yellow) 08/18/22 15:25 Urine Appearance Clear (CLEAR) 08/18/22 15:25 Urine pH 5 (5-7) 08/18/22 15:25 Ur Specific [place] 1.020 (1.005-1.030) 08/18/22 15:25 Urine Protein Neg (Negative) 08/18/22 15:25 Urine Glucose (UA) Norm (Normal) 08/18/22 15:25 Urine Ketones Negative (Negative) 08/18/22 15:25 Urine Blood Neg (Negative) 08/18/22 15:25 Urine Nitrate Negative (Negative) 08/18/22 15:25 Urine Bilirubin Neg (Negative) 08/18/22 15:25 Urine Urobilinogen Norm mg/dL (Negative) 08/18/22 15:25 Ur Leukocyte Esterase Negative (Negative) 08/18/22 15:25 Discharge Plan Discharge Patient Disposition: Home Clinical Impression: Spondylolisthesis at L5-S1 level, Lumbar post-laminectomy syndrome Condition: Stable Prescriptions: New prednisone 20 mg tablet 20 mg PO TID Qty: 15 0RF Rx Instructions: 1 p.o. 3 times daily x3 days, 1 p.o. twice daily x2 days, 1 p.o. daily x2 days diclofenac sodium 75 mg tablet,delayed release (DR/EC) 75 mg PO Q12H PRN (Reason: pain) Qty: 20 0RF tizanidine 4 mg tablet 4 mg PO Q6H PRN (Reason: muscle spasticity) Qty: 20 0RF Rx Instructions: do not exceed 3 doses per 24 hrs Lyrica 75 mg capsule 75 mg PO BID Qty: 60 0RF No Action cyclobenzaprine 5 mg tablet 5 mg PO TID PRN (Reason: muscle spasm) Qty: 90 0RF Discharge Orders: Discharge ED (Routine); Ordered 08/18/22 Ordered By: Jose Mcclellan Referrals: Vick Sauer DO [Primary Care Provider] - Discharge Diet: Usual diet Discharge Activity: Limit activity as instructed Patient Instructions: Opioid Safety, Pain Management Activity Restrictions/Additional Instructions: Follow-up with Dr. Allyson early next week. Use medications as prescribed above. Coding Level of Care Code ED Entry Level Account Executive for Sylvia Cronin
--- NOTE | 2022-08-18 13:21 | CTR_ITS ---
PROCEDURE INFORMATION: Exam: CT Lumbar Spine With Contrast Exam date and time: 08/18/2022 2:40 PM Age: 67 years old Clinical indication: Low back pain; Prior surgery; Surgery date: 3-7 days post-operative; Additional info: Post surgical pain and weakness TECHNIQUE: Imaging protocol: Computed tomography of the lumbar spine with contrast. Radiation optimization: All CT scans at this facility use at least one of these dose optimization techniques: automated exposure control; mA and/or kV adjustment per patient size (includes targeted exams where dose is matched to clinical indication); or iterative reconstruction. Contrast material: OMNIPAQUE 350; Contrast volume: 100 ml; Contrast route: INTRAVENOUS (IV); COMPARISON: MR lumbar spine wo con* [id number] 07/04/2022 2:39 PM RADIATION DOSE METRICS: Total DLP (mGy-cm): 1057.77 FINDINGS: Bones/joints: Grade 1 anterior spondylolytic spondylolisthesis of L5 on S1. Severe L5-S1 degenerative disc disease and spondylosis with Modic type III sclerotic endplate degenerative changes. Possible right L4-L5 laminectomy. Mild L4-L5 posterior disc bulge with right lateral recess stenosis. Mild multilevel lumbar spondylosis. Probable 1.1 cm benign intraosseous bone hemangioma in the right portion of the L2 vertebral body. Soft tissues: Unremarkable. CT/CT lumbar spine w con [id number] IMPRESSION: 1. Grade 1 anterior spondylolytic spondylolisthesis of L5 on S1. 2. Severe L5-S1 degenerative disc disease and spondylosis with Modic type III sclerotic endplate degenerative changes. 3. Possible right L4-L5 laminectomy. 4. Mild L4-L5 posterior disc bulge with right lateral recess stenosis. 5. Mild multilevel lumbar spondylosis.
[2022-08-18 13:57] LABS: Basophils # 0.1 10^3/uL (0.0-0.1); Basophils % 0.5 %; Eosinophils # 0.1 10^3/uL (0.0-0.8); Eosinophils % 0.4 %; Hematocrit 44.6 % (42.0-52.0); Hemoglobin 14.6 g/dL (11.7-16.6); Lymphocytes # 1.2 10^3/uL (0.8-4.8); Lymphocytes % 8.4 %; Mean Corpuscular HGB Conc 32.7 g/dL (30.0-36.0); Mean Corpuscular Hemoglobin 31.5 pg (28.0-34.0); Mean Corpuscular Volume 96.3 fl (80-94); Mean Platelet Volume 10.3 fL (7.4-10.4); Monocytes # 1.5 10^3/uL (0.2-0.9); Monocytes % 10.9 %; Neutrophils # 10.81 10^3/uL (1.8-7.7); Neutrophils % 78.9 %; Nucleated Red Blood Cells % 0 %; Platelet Count 242 10^3/cmm (130-400); Red Blood Count 4.63 10^6/uL (4.1-5.3); Red Cell Distribution Width 12.8 % (12.1-15.1); White Blood Count 13.7 10^3/uL (4.0-10.0)
[2022-08-18 14:18] LABS: Alanine Aminotransferase 16 U/L (0-41); Albumin Level 3.6 g/dL (3.5-5.2); Alkaline Phosphatase 70 U/L (40-130); Anion Gap 10.3 (5-19); Aspartate Amino Transferase 20 U/L (0-40); Blood Urea Nitrogen 15 mg/dL (8-23); Calcium 8.6 mg/dL (8.5-10.5); Carbon Dioxide 27 mmol/L (22-29); Chloride 91 mmol/L (98-107); Creatinine Clr Calc Pharmacy 106.8951; Globulin 3.3 g/dL (1.3-4.6); Glomerular Filtration Rate 134.8 mL/min (90-130); Glucose 108 mg/dL (65-115); Osmolality Calculated 261 mOsm/kg (285-295); Potassium 3.3 mmol/L (3.5-5.1); Sodium 125 mmol/L (136-145); Total Bilirubin 0.5 mg/dL (0.15-1.2); Total Protein 6.9 g/dL (6.6-8.7)
[2022-08-18] MEDS: dexamethasone 10 mg/mL INJ IVP (14:22)
[2022-08-18] MEDS: ketorolac 30 mg/mL INJ IVP (14:23)
[2022-08-18] MEDS: orphenadrine 30 mg/mL Inj 2 mL 60 MG IVP (14:25)
[2022-08-18 14:32] VITALS: RESP 18
[2022-08-18] MEDS: morphine 4 mg/mL SDV 1 mL IVP (14:32)
[2022-08-18] MEDS: iohexol 350 mg/mL 500 mL Btl (per mL) IV (14:47)
[2022-08-18 15:34] LABS: Add Urine Microscopic? NO; Charge for UA Resulting for Rev
[2022-08-18 15:50] LABS: Bilirubin Urine Neg (Negative); Blood Urine Neg (Negative); Glucose Urine UA Norm (Normal); Ketones Urine Negative (Negative); Leukocyte Esterase Urine Negative (Negative); Nitrate Urine Negative (Negative); Protein Urine Neg (Negative); Urine Appearance Clear (CLEAR); Urine Color Straw (Yellow); Urobilinogen Urine Norm (Negative); pH Urine 5 (5-7)
== END 2022-08-18 16:40 | disposition home or self-care (01) ==
PROVIDERS: Emergency Provider Family Medicine; PCP Emergency Medicine Emergency Medical Services
DX: M43.17 Spondylolisthesis, lumbosacral region (principal); M96.1 Postlaminectomy syndrome, not elsewhere classified
CPT/HCPCS: 36415; 72132; 80053; 81003; 85025; 96374; 96375; 99285; J1100; J1885; J2270; J2360

== ENCOUNTER → 2022-08-22 13:07 | Outpatient (BNVA) | payer OTHER, SELFPAY | PROVIDERS: PCP Emergency Medicine Emergency Medical Services; Visit Provider Orthopaedic Surgery | DX: Z47.89 Encounter for other orthopedic aftercare (principal) | CPT/HCPCS: 99024 ==

== ENCOUNTER → 2022-10-01 07:54 | Outpatient (BNVA) | payer OTHER, SELFPAY | PROVIDERS: PCP Emergency Medicine Emergency Medical Services; Visit Provider Orthopaedic Surgery | DX: Z47.89 Encounter for other orthopedic aftercare (principal) | CPT/HCPCS: 99024 ==

== ENCOUNTER → 2022-11-14 08:34 | Outpatient (BNVA) | payer OTHER, SELFPAY | PROVIDERS: PCP Emergency Medicine Emergency Medical Services; Visit Provider Orthopaedic Surgery | DX: Z47.89 Encounter for other orthopedic aftercare (principal) | CPT/HCPCS: 99024 ==

== ENCOUNTER → 2023-02-11 08:55 | Outpatient (BNVA) | payer OTHER, SELFPAY | PROVIDERS: PCP Emergency Medicine Emergency Medical Services; Visit Provider Physician Assistant | DX: M43.17 Spondylolisthesis, lumbosacral region (principal); M51.37 Other intervertebral disc degeneration, lumbosacral region; M21.371 Foot drop, right foot | CPT/HCPCS: 99213 ==